=== PATIENT | female | born 1985 | race Caucasian/White ===

== ENCOUNTER → 2020-05-30 14:19 | Outpatient (CLI) | payer OTHER, SELFPAY ==
--- NOTE | 2020-05-30 14:24 | DI.MG.S_ITS ---
BILATERAL DIGITAL DIAGNOSTIC MAMMOGRAM 3D/2D: 05/30/2020 CLINICAL: Baseline exam. Left breast pain. No prior exams were available for comparison. The tissue of both breasts is heterogeneously dense. This may lower the sensitivity of mammography. No significant masses, calcifications, or other findings are seen in either breast. IMPRESSION: INCOMPLETE: NEEDS ADDITIONAL IMAGING EVALUATION There is no abnormality seen in the left breast to correspond with the discharge from the nipple in the sub-areolar depth, however, ultrasound is recommended. There is no abnormality seen in the left axilla to correspond with the pain in the left axilla, however, ultrasound is recommended. Targeted ultrasound is recommended for further evaluation, which will be scheduled immediately following this exam. This exam was interpreted at Station ID: [id number]. NOTE: For mammograms, a report in lay terms will be sent to the patient. Approximately 15% of breast malignancies will not be visualized mammographically. In the management of a palpable breast mass, a negative mammogram must not discourage biopsy of a clinically suspicious lesion. Electronically Signed By: Leo daniel/dave:05/30/2020 15:50:37 ACR BI-RADS Category 0: Incomplete [id number]
--- NOTE | 2020-05-30 14:24 | DI.US.S_ITS ---
LIMITED ULTRASOUND OF LEFT BREAST AND AXILLA: 05/30/2020 CLINICAL: Focal left breast pain and left axilla pain. Comparison is made to exam dated: 05/30/2020 [facility]. Color flow ultrasound of the left breast axilla was performed. Ramirez scale images of the real-time examination were reviewed. There is a benign dilated duct in the left breast central to the nipple in the retroareolar region. This dilated duct displays internal echoes. This correlates with the nipple discharge. No intraductal mass or vascularity is seen. There also is a benign normal intramammary lymph node in the left breast at 3 o'clock middle depth. This correlates as an incidental finding. No significant abnormalities were seen sonographically in the left axilla. IMPRESSION: BENIGN There is no sonographic evidence of malignancy. The dilated duct in the left breast central to the nipple in the retroareolar region is benign. Recommend clinical correlation and follow up for reported episode of bloody nipple discharge. If there is persistent or worsening spontaneous bloody nipple discharge, the patient may return for further evaluation. The normal intramammary lymph node in the left breast at 3 o'clock middle depth is benign. There is no abnormality seen in the left breast or in the left axilla to correspond with the diffuse pain in the lateral aspect and in the left axilla, however, clinical correlation is recommended. Follow-up with ACR/ACS guidelines. This exam was interpreted at Station ID: [id number]. Electronically Signed By: Leo daniel/dave:05/30/2020 15:58:16 letter sent: Clinical Evaluation Ultrasound BI-RADS: 2 Benign
== END ==
PROVIDERS: PCP Registered Nurse; Referring Provider Registered Nurse; Visit Provider Registered Nurse
DX: R92.8 Other abnormal and inconclusive findings on diagnostic imaging of breast (principal); N64.4 Mastodynia
CPT/HCPCS: 76642; 77066; G0279

== ENCOUNTER → 2020-07-24 09:37 | Outpatient (CLI) | payer OTHER, SELFPAY ==
[2020-07-24] MEDS: COVID-19 VACC #1, MRNA(MOD) 100 MCG/0.5 ML VIAL IM (09:45)
== END ==
PROVIDERS: PCP Registered Nurse; Visit Provider Internal Medicine
DX: Z23 Encounter for immunization (principal)
CPT/HCPCS: 0011A; 91301

== ENCOUNTER → 2020-08-21 09:27 | Outpatient (CLI) | payer OTHER, SELFPAY ==
[2020-08-21] MEDS: COVID-19 VACC #2, MRNA(MOD) 100 MCG/0.5 ML VIAL IM (09:41)
== END ==
PROVIDERS: PCP Registered Nurse; Visit Provider Internal Medicine
DX: Z23 Encounter for immunization (principal)
CPT/HCPCS: 0012A; 91301

== ENCOUNTER → 2020-10-03 15:56 | Outpatient (CLI) | payer OTHER, SELFPAY ==
[2020-10-03 17:00] LABS: Add Manual Diff / Slide Review NO; Basophils Absolute Auto 0 /uL (0-100); Basophils Percent Auto 0.3 % (0-2); Eosinophils Absolute Auto 100 /uL (0-450); Eosinophils Percent Auto 0.9 % (2-4); Hematocrit 38.2 % (36-46); Hemoglobin 12.3 g/dL (12.0-16.0); Lymphocytes Absolute Auto 2200 /uL (1100-4500); Lymphocytes Percent Auto 31.5 % (25-40); Mean Corpuscular HGB Conc 32.2 % (30-36); Mean Corpuscular Hemoglobin 26.2 PG (26-34); Mean Corpuscular Volume 81.3 fL (80-100); Monocytes Absolute Auto 500 /uL (0-900); Monocytes Percent Auto 6.8 % (3-14); Neutrophils Absolute Auto 4200 /uL (1500-7000); Neutrophils Percent Auto 60.5 % (50-75); Platelet Count 290 X10^3/uL (150-400); Red Cell Distribution Width 13.1 % (11.6-14.8)
[2020-10-03 18:52] LABS: HCG Quantitative /Beta subunit < 2.4 mIU/mL
[2020-10-03 18:53] LABS: Free T4, Direct Thyroxine 0.87 ng/dL (0.78-2.19)
[2020-10-03 19:07] LABS: TSH w/ Reflex to FT4 1.89 uIU/mL (0.47-4.68)
== END ==
PROVIDERS: PCP Registered Nurse; Referring Provider Obstetrics & Gynecology; Visit Provider Obstetrics & Gynecology
DX: N92.6 Irregular menstruation, unspecified (principal)
CPT/HCPCS: 36415; 84439; 84443; 84702; 85025

== ENCOUNTER → 2020-10-23 07:54 | Outpatient (CLI) | payer OTHER, SELFPAY ==
[2020-10-23 08:46] LABS: COVID19 -Nasal RAPID Negative (Negative)
== END ==
PROVIDERS: PCP Registered Nurse; Referring Provider Obstetrics & Gynecology; Visit Provider Obstetrics & Gynecology
DX: Z01.812 Encounter for preprocedural laboratory examination (principal); Z20.822 Contact with and (suspected) exposure to COVID-19
CPT/HCPCS: 87635

== ENCOUNTER 2020-10-24 06:40 | Day surgery (SDC) | payer OTHER, SELFPAY ==
[2020-10-20 08:47] VITALS: BMI 33.7
--- NOTE | 2020-10-24 | PATH_ITS ---
[facility] Accession Number: [id number] . 01 Material submitted: . body - SUSPECTED PLACENTA NODULE . 02 Diagnosis: Suspected Placental Nodule, Procedure Not Specified: Focal glandular crowding. Background of proliferative endometrium and blood clot. Negative for glandular hyperplasia, cytologic atypia, or malignancy. Some endometrial fragments demonstrate prominent vessels, suggestive of polyp, if clinical and imaging studies are concordant. No placental tissue identified. [facility] 10/29/2020 1545 Local . 02 Electronically signed: . Shirley Pastor MD, Pathologist NPI- [id number] . 01 Gross description: . The specimen is received in formalin, labeled suspected placental nodule, and consists of multiple red-brown fragments of soft tissue and clotted blood measuring 2.5 x 2.0 x 0.5 cm in aggregate. The specimen is filtered and entirely submitted in cassette A1. ([id number]) /FRR 10/25/2020 1347 Local . 02 Pathologist provided ICD-10: O43.90 . 02 CPT . 511665 Performed at: 01 [facility] [address], [place], [place] [id number] MD Jesus Ramírez MD Phone: [phone] Performed at: 02 [facility] [address] [place], [place] [id number] MD Alanis Miller MD Phone: [phone]
[2020-10-24 07:04] VITALS: BMI 33.7
[2020-10-24] MEDS: LACTATED RINGERS 1,000 ML 100 ML IV (07:24)
[2020-10-24 07:25] VITALS: BP 112/74; PULSE 80; RESP 16; TEMP 36.3; O2SAT 99
--- NOTE | 2020-10-24 07:37 | PM.PREOP ---
Pre-operative Note COVID-19 COVID-19 status: Negative Result date/Date tested (Pos, Neg/Pending): 10/24/20 Interval Note History & Physical reviewed/Exam performed by Physician: Yes Changes to H&P: No
[2020-10-24] MEDS: ACETAMINOPHEN 325 MG TABLET 975 MG PO (07:38)
--- NOTE | 2020-10-24 07:39 | SUR.PREOP ---
Dr Tipton here for pre-op. Pt with history of cramping post op. See order for acetaminophen>
--- NOTE | 2020-10-24 08:07 | SUR.OPER ---
Lithotomy on padded OR bed, head on pillow, arms secured on padded arm boards at <90 degrees abduction. Legs secured in padded yellow fins stirrups.
--- NOTE | 2020-10-24 08:36 | PM.GYNOP.1 ---
Operative Date/Time/Diagnoses Date of procedure: 10/24/20 Time of procedure: 07:45 Pre-op diagnosis: abnormal uterine bleeding Post-op diagnosis: same Procedure & Clinicians Procedure: Procedures Operation Date: 10/24/20 07:45 Actual Procedure Side Surgeon p Operative Hysteroscopy and Dilation and Curettage Darcy Kauffman MD Indications: abnormal uterine bleeding, suspected placental site nodule in setting of prior history of the same Surgeon: Darcy Kauffman Anesthesia Type: MAC +/- Operative Notes Findings: Normal vulva and vagina. Bicornuate uterus known with two cervixes, though one clearly larger, more developed and more accessible. Within uterine horn, single cornua and osteum noted, with largely atrophic endometrium. Small area in lower segment of posterior wall consistent with retained products of conception. Specimen(s): endometrial curettings Estimated blood loss (mL): 0 Procedure in detail: After informed consent was obtained, the patient was taken to the operating room. She was prepped and draped in the usual sterile fashion in the dorsal lithotomy position, and the bladder drained with a straight catheter. A speculum was placed into the vagina and both cervixes easily visualized, though the more developed cervix was clearly visible. The anterior lip of this cervix was grasped with a single toothed tenaculum and the cervix dilated to 8mm with serial Hegar dilators, with minimal pressure necessary. An operative hysteroscope was inserted through the cervix with gentle pressure with sorbitol as a distension medium. The above findings were visualized without difficulty, and the apparent retained products of conception resected with a resectoscope without difficulty. The resectoscope was removed and a gentle dilation and curettage performed to ensure that the tissue had been resected and removed. The operative hysteroscope was then reinserted, and one final pass performed to ensure hemostasis at the site of the retained products. This was removed, and the tenaculum removed from the cervix with spontaneous hemostasis noted. The speculum was then removed from the vagina. The patient tolerated the procedure well and taken to the PACU in stable condition. IVF: 750ccs LR Fluid deficit 100ccs sorbitol Complications: none Post-operative Condition: stable Disposition: PACU Plan for aftercare: Routine postoperative care.
[2020-10-24 08:47] VITALS: BP 86/46; PULSE 81; RESP 12; O2SAT 98
[2020-10-24 08:52] VITALS: BP 106/52; PULSE 83; RESP 14; TEMP 36.4; O2SAT 99
[2020-10-24] MEDS: KETOROLAC 30 MG/ML VIAL IV (08:56)
[2020-10-24 09:02] VITALS: BP 106/60; PULSE 81; RESP 16; O2SAT 98
[2020-10-24 09:15] VITALS: BP 111/68; PULSE 96; RESP 16; TEMP 36.6; O2SAT 98
[2020-10-24 09:51] VITALS: BP 105/75; PULSE 82; RESP 15; TEMP 36.3; O2SAT 97
== END 2020-10-24 10:12 | disposition home or self-care (01) ==
PROVIDERS: PCP Registered Nurse; Referring Provider Obstetrics & Gynecology; Visit Provider Obstetrics & Gynecology
PROC: 0UDB8ZZ Extraction of Endometrium, Via Natural or Artificial Opening Endoscopic (ICD-10-PCS; CPT 58558; principal; 2020-10-24 07:45)
DX: N93.9 Abnormal uterine and vaginal bleeding, unspecified (principal); Q51.3 Bicornate uterus; Q51.820 Cervical duplication
CPT/HCPCS: 58558; 81025; 82962; J1100; J1885; J2250; J2405; J2704; J3010

== ENCOUNTER → 2021-10-09 15:02 | Outpatient (ROUT) | payer OTHER, SELFPAY | PROVIDERS: PCP Registered Nurse; Visit Provider Ophthalmology | DX: B30.0 Keratoconjunctivitis due to adenovirus (principal) | CPT/HCPCS: 87252 ==

== ENCOUNTER → 2023-06-16 16:11 | Outpatient (CLI) | payer BC, SELFPAY ==
[2023-06-16 17:09] LABS: Add Manual Diff / Slide Review NO; Basophils Absolute Auto 0 /uL (0-100); Basophils Percent Auto 0.8 % (0-2); Eosinophils Absolute Auto 200 /uL (0-450); Hematocrit 34.1 % (36-46); Lymphocytes Absolute Auto 2100 /uL (1100-4500); Lymphocytes Percent Auto 36.3 % (25-40); Mean Corpuscular HGB Conc 32.3 % (30-36); Mean Corpuscular Hemoglobin 24.2 PG (26-34); Mean Corpuscular Volume 75.1 fL (80-100); Monocytes Absolute Auto 500 /uL (0-900); Monocytes Percent Auto 9.4 % (3-14); Neutrophils Absolute Auto 2800 /uL (1500-7000); Neutrophils Percent Auto 50.5 % (50-75); Platelet Count 359 X10^3/uL (150-400); Red Blood Cell Count 4.54 X10^6/uL (4.0-5.2); Red Cell Distribution Width 14.2 % (11.6-14.8); White Blood Cell Count 5.7 X10^3/uL (4.5-11.0)
[2023-06-16 17:49] LABS: Alanine Aminotransferase 55 IU/L (<35); Albumin 4.6 g/dL (3.5-5.0); Albumin Globulin Ratio 1.2 (1.0-2.8); Alkaline Phosphatase 80 U/L (38-126); Aspartate Aminotransferase 42 IU/L (14-36); BUN Creatinine Ratio 15.8 (6-22); Bilirubin Total 0.4 mg/dL (0.2-1.3); Blood Urea Nitrogen 12 mg/dL (7-17); Calcium 9.6 mg/dL (8.4-10.2); Carbon Dioxide 27 mmol/L (22-32); Chloride 106 mmol/L (98-107); Estimated Glomerular Filt Rate > 60 mL/min (>60); Glucose 98 mg/dL (70-100); HEMOLYSIS < 15 (0-50); Sodium 139 mmol/L (137-145); Total Protein 8.6 g/dL (6.3-8.2); Uric Acid 3.5 mg/dL (2.5-6.2)
[2023-06-16 17:50] LABS: Potassium 3.9 mmol/L (3.4-5.1)
[2023-06-16 17:54] LABS: High Sensitivity CRP - Cardiac 1.7 mg/L (1.0-3.0)
[2023-06-16 18:04] LABS: Erythrocyte Sedimentation Rate 31 MM/HR (0-20)
[2023-06-16 18:10] LABS: Rheumatoid Factor < 8.6 IU/mL (<12.0)
[2023-06-16 18:14] LABS: Thyroid Stimulating Hormone 1.85 uIU/mL (0.47-4.68)
[2023-06-21 13:10] LABS: Antimyeloperoxidase Antibodies <0.2 units (0.0-0.9); Antiproteinase 3 Antibodies <0.2 units (0.0-0.9); Cytoplasmic C-ANCA <1:20 titer (Neg:<1:20); Perinuclear P-ANCA <1:20 titer (Neg:<1:20)
[2023-06-21 20:35] LABS: SS A Ro Sjogrens Antibody 0.2 AI (0.0-0.9); SS B La Sjogrens Antibody < 0.2 AI (0.0-0.9)
[2023-06-22 17:20] LABS: ANA Screen, IFA Negative (.)
[2023-06-24 16:10] LABS: HLA B27 Positive (.)
== END ==
PROVIDERS: Referring Provider Ophthalmology; Visit Provider Ophthalmology
DX: K12.30 Oral mucositis (ulcerative), unspecified (principal); H16.9 Unspecified keratitis
CPT/HCPCS: 36415; 80053; 81374; 84443; 84550; 85025; 85651; 86038; 86140; 86235; 86256; 86430

== ENCOUNTER → 2025-03-23 09:57 | Outpatient (CLI) | payer BC, SELFPAY ==
[2025-03-23 10:31] LABS: Hematocrit 41.3 % (36-46); Hemoglobin 13.9 g/dL (12.0-16.0); Lymphocytes Absolute Auto 1200 /uL (1100-4500); Mean Corpuscular HGB Conc 33.6 % (30-36); Mean Corpuscular Hemoglobin 27.4 PG (26-34); Mean Corpuscular Volume 81.5 fL (80-100); Platelet Count 255 X10^3/uL (150-400)
[2025-03-23 10:52] LABS: HEMOLYSIS < 15 (0-50); Iron 49 ug/dL (37-170)
[2025-03-23 11:00] LABS: Add Manual Diff / Slide Review SLIDE REVIEW
[2025-03-23 11:05] LABS: Percent Iron Saturation 13 % (15-50); Total Iron Binding Capacity 371 ug/dL (265-497); Transferrin 308 mg/dL (206-381)
[2025-03-23 11:29] LABS: Ferritin 35 ng/mL (6-137)
[2025-03-23 11:41] LABS: Vitamin B12 Reflex MMA if <400 713 pg/mL (239-931)
[2025-03-23 13:26] LABS: Anisocytosis 1+
== END ==
PROVIDERS: PCP Family Medicine; Referring Provider Family Medicine; Visit Provider Family Medicine
DX: D64.9 Anemia, unspecified (principal); R19.7 Diarrhea, unspecified; D50.9 Iron deficiency anemia, unspecified; R53.83 Other fatigue
CPT/HCPCS: 36415; 82607; 82728; 83516; 83540; 83550; 85025